=== PATIENT | male | born 1960 | race Caucasian/White ===

== ENCOUNTER 2021-01-06 17:32 | Emergency (ER) | payer OTHER, SELFPAY ==
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
--- NOTE | 2021-01-06 18:09 | PC.NURSE ---
Attempted to call to triage - pt in parking lot smoking a cigarette. called another pt in.
[2021-01-06 18:11] VITALS: BP 128/78; PULSE 66; RESP 18; TEMP 37.1; O2SAT 97
[2021-01-06 20:10] VITALS: BP 127/77; PULSE 69; O2SAT 97
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
== END 2021-01-06 21:00 | disposition home or self-care (01) ==
PROVIDERS: Emergency Provider Emergency Medicine
DX: S42.032A Displaced fracture of lateral end of left clavicle, initial encounter for closed fracture (principal); M19.90 Unspecified osteoarthritis, unspecified site; F17.200 Nicotine dependence, unspecified, uncomplicated; V86.55XA Driver of 3- or 4- wheeled all-terrain vehicle (ATV) injured in nontraffic accident, initial encounter
CPT/HCPCS: 73000; 73030; 99284; A4565

== ENCOUNTER 2023-04-03 10:28 | Outpatient (CLI) | payer OTHER, SELFPAY ==
--- NOTE | ~2023-04-03 | XR_ITS ---
EXAMINATION:XR cervical spine min 6V DATE: 04/03/2023 10:55 INDICATION: Neck pain TECHNIQUE: AP, lateral in neutral, flexion, extension, bilateral oblique, and odontoid views of the c ervical spine are provided. COMPARISON: None FINDINGS: There are 2 mm of retrolisthesis of C3 on C4.. There is no hypermobility with flexion or ex tension. The odontoid process is intact. No fracture is identified. The vertebral body heights are ma intained. There is mild loss of intervertebral disc space height at C3-4 and C6-7. There is multileve l moderate to severe facet and uncovertebral joint osteoarthritis. There is also at least moderate mu ltilevel bilateral neuroforaminal stenosis. A plate and screws are noted in the left clavicle. Prever tebral soft tissues are normal. IMPRESSION: 1. Moderate cervical spondylosis without acute findings. Reviewed, dictated and finalized at location B. K PREPARATION OPERATOR
--- NOTE | ~2023-04-03 | XR_ITS ---
EXAMINATION: XR lumbar spine 6V w bending DATE: 04/03/2023 10:55 INDICATION: Dorsalgia, unspecified TECHNIQUE: Anteroposterior, lateral in neutral, flexion and extension, and bilateral oblique views of the lumbar spine were obtained. COMPARISON: None. FINDINGS: Bone alignment is normal. There is no hypermobility with flexion or extension. The vertebra l body heights are maintained. There is mild loss of intervertebral disc space height throughout the lumbar spine. There is moderate facet joint osteoarthritis of the mid and lower lumbar spine. Calcifi ed atherosclerosis is noted. Small degenerative osteophytes project from the anterior endplates of mu ltiple vertebral bodies. IMPRESSION: 1. Mild lumbar spondylosis without acute findings. Reviewed, dictated and finalized at location B. TY OPERATOR APPRENTICE
== END 2023-04-03 10:29 | disposition home or self-care (01) ==
PROVIDERS: PCP Family Medicine; Visit Provider Anesthesiology Pain Medicine
DX: M47.817 Spondylosis without myelopathy or radiculopathy, lumbosacral region (principal); M54.9 Dorsalgia, unspecified; M47.812 Spondylosis without myelopathy or radiculopathy, cervical region; M54.2 Cervicalgia; M43.06 Spondylolysis, lumbar region
CPT/HCPCS: 72052; 72114

== ENCOUNTER 2024-02-12 14:41 | Emergency (ER) | payer OTHER, SELFPAY ==
[2024-02-12 14:48] VITALS: BP 123/81; PULSE 70; RESP 16; TEMP 36.3; O2SAT 98
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
== END 2024-02-12 15:45 | disposition home or self-care (01) ==
PROVIDERS: Emergency Provider Nurse Practitioner; PCP Family Medicine
DX: S61.211A Laceration without foreign body of left index finger without damage to nail, initial encounter (principal); W26.0XXA Contact with knife, initial encounter; M19.90 Unspecified osteoarthritis, unspecified site; F17.200 Nicotine dependence, unspecified, uncomplicated
CPT/HCPCS: 12002; 99212; G0463

== ENCOUNTER 2024-02-23 16:15 | Emergency (ER) | payer OTHER, SELFPAY ==
[2024-02-23 16:26] VITALS: BP 157/91; PULSE 55; RESP 16; TEMP 36; O2SAT 100
--- NOTE | 2024-02-23 16:41 | ED.WOUNDLAC ---
HPI - Wound/Laceration General Chief Complaint: Wound/Laceration Stated Complaint: SUTURE REMOVAL Time Seen by Provider: 02/23/24 16:36 Source: patient, RN notes reviewed and old records reviewed Mode of arrival: ambulatory Limitations: no limitations History of Present Illness HPI narrative: Patient presents today for suture removal from his left 2nd finger. He was seen at [facility] on 02/12/2024 and had 7 sutures placed in his finger. Denies any difficulties or complications once the sutures were placed. Related Data Home Medications Medication Instructions Recorded Confirmed albuterol sulfate 90 mcg/actuation 2 inh inhalation DIRECTED 03/09/23 02/12/24 aerosol inhaler citalopram 40 mg tablet 40 mg PO DIRECTED 03/09/23 02/12/24 diazepam 10 mg tablet 10 mg PO DIRECTED 03/09/23 02/12/24 hydrocodone 10 mg-acetaminophen 1 tablet PO DIRECTED 02/12/24 02/12/24 325 mg tablet Allergies Allergy/AdvReac Type Severity Reaction Status Date / Time Penicillins Allergy Unknown Hives Verified 02/12/24 14:56 codeine AdvReac Vomiting Verified 02/12/24 14:56 Review of Systems Review of Systems: CONSTITUTIONAL: Denies body aches, fever, chills, or sweats. EYES: Denies visual changes, redness, or discharge. ENT: Denies rhinorrhea, congestion, sore throat, or otalgia. CARDIOVASCULAR: Denies chest pain, palpitations, or edema. RESPIRATORY: Denies cough or dyspnea. GASTROINTESTINAL: Denies abdominal pain, nausea, vomiting, or diarrhea. GENITOURINARY: Denies dysuria or hematuria. SKIN: + sutures to left 2nd finger MUSCULOSKELETAL: Denies back pain, joint pain, or myalgia. NEUROLOGIC: Denies headache, numbness, tingling, or weakness. PSYCH: Denies depression or anxiety. [facility] Past Medical History Medical History Arthritis Chronic pain Social History Social History Smoking status: Current every day smoker Alcohol intake: current Comments At time of signature, I have reviewed and agree with nursing past medical, surgical, social and family history unless otherwise noted. Please see nursing chart for further information. There is no relevant family history pertinent to the presenting complaint Exam Narrative: GENERAL: Well-appearing, well-nourished, and in no acute distress. HEAD: Normocephalic, atraumatic. EYES: EOMI. No redness or drainage. Conjunctivae normal. ENT: Mucous membranes pink and moist. NECK: Normal AROM. CHEST: No respiratory distress. EXTREMITIES: Healing wound to left 2nd finger. Seven intact sutures noted. No drainage, erythema, edema, ecchymosis noted. SKIN: Warm, dry, no rash. Capillary refill normal. Normal skin turgor. NEURO: No focal deficits. Alert and oriented x3. Gait steady. PSYCH: Normal affect. No signs of depression or anxiety. Course Course Level of Care: Express Care Visit Vital Signs Vital signs: Vital Signs Temperature 96.8 F L 02/23/24 16:26 Pulse Rate 55 L 02/23/24 16:26 Respiratory Rate 16 02/23/24 16:26 Blood Pressure 157/91 H 02/23/24 16:26 Pulse Oximetry 100 02/23/24 16:26 Temperature 96.8 F L 02/23/24 16:26 Pulse Rate 55 L 02/23/24 16:26 Respiratory Rate 16 02/23/24 16:26 Blood Pressure 157/91 H 02/23/24 16:26 Pulse Oximetry 100 02/23/24 16:26 Reviewed Procedures Other Procedure Procedure 1: Other Procedure: Seven intact sutures removed without incident. Patient tolerated procedure well. MDM - Wound/Laceration MDM Narrative Medical decision making narrative: Seven intact sutures removed from finger. Finger is healing well without any signs of complication. Differential Diagnosis Differential diagnosis: Likely laceration and other (Cellulitis, abscess) Critical Care Time Critical Care Time Critical Care Time: No Discharge Plan Discharge Clinical Impressi
== END 2024-02-23 16:45 | disposition home or self-care (01) ==
PROVIDERS: Emergency Provider Nurse Practitioner; PCP Family Medicine
DX: S61.211D Laceration without foreign body of left index finger without damage to nail, subsequent encounter (principal); X58.XXXD Exposure to other specified factors, subsequent encounter; M19.90 Unspecified osteoarthritis, unspecified site; F17.200 Nicotine dependence, unspecified, uncomplicated
CPT/HCPCS: 99211; G0463